=== PATIENT | male | born 1985 | race Asian ===

== ENCOUNTER 2018-12-07 00:27 | Emergency (ER) | payer OTHER ==
[2018-12-07 00:40] VITALS: BP 141/97
--- NOTE | 2018-12-07 00:42 | ED ---
Upper Extremity Pain - HPI Summary HPI Summary: This patient is a 33 year old M presenting to ED with a chief complaint of fishhook in his left thumb since 2229 on 12/06/18. The [place] of the fishhook is in. Patient has not had a tetanus vaccine. The patient rates the pain 0/10 in severity. Symptoms aggravated by nothing. Symptoms alleviated by nothing. Patient denies fever. PMHx HTN. FHx HTN. PSHx of back surgery per patient. Patient does not drink alcohol or use substances, but he does smoke tobacco. 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, Still Present Timing: Constant Severity Initially: Mild Severity Currently: None Pain Location: Other: - L thumb Aggravating Factor(s): Nothing Alleviating Factor(s): Nothing Associated Signs & Symptoms: Positive: Negative - Fever PMH/Surg Hx/FS Hx/Imm Hx Endocrine/Hematology History: Denies: Hx Diabetes Cardiovascular History: Reports: Hx Hypertension - Surgical History Surgery Procedure, Year, and Place: Back surgery Infectious Disease History: No Infectious Disease History: Denies: Traveled Outside the [place] in Last 30 Days - Family History Known Family History: Positive: Hypertension Negative: Diabetes - Social History Alcohol Use: None Hx Substance Use: No Hx Tobacco Use: Yes Smoking Status (MU): Current Some Day Smoker Review of Systems Negative: Fever Skin: Other - [place] in L thumb All Other Systems Reviewed And Are Negative: Yes Physical Exam - Summary Physical Exam Summary: Appearance: Well-appearing, Well-nourished, lying in bed comfortable Skin: fish hook embedded in pad of left thumb Eyes: sclera anicteric, no conjunctival pallor ENT: mucous membranes moist Neck: deferred Respiratory: No signs of respiratory distress Cardiovascular: Appears well perfused, pulses are nml Abdomen: deferred Musculoskeletal: Moving all 4 extremities without obvious discomfort Neurological: Awake and alert, mentation is normal, speech is fluent and appropriate Psychiatric: affect is normal, does not appear anxious or depressed Triage Information Reviewed: Yes Vital Signs On Initial Exam: Initial Vitals Temp Pulse Resp BP Pulse Ox 98.0 F 80 16 141/97 98 12/07/18 00:30 06/03/19 00:30 12/07/18 00:30 12/07/18 00:30 12/07/18 00:30 Vital Signs Reviewed: Yes Procedures - Procedure Summary Procedure Summary: Digital block of left thumb with 2% lidocaine with epi. After anesthesia was achieved, foreign body was extracted with help of needle oil transport driver. Diagnostics - Vital Signs Vital Signs Temp Pulse Resp BP Pulse Ox 12/07/18 00:30 98.0 F 80 16 141/97 98 - Laboratory Lab Statement: Any lab studies that have been ordered have been reviewed, and results considered in the medical decision making process. Course/Dx - Course Course Of Treatment: This patient is a 33 year old M presenting to ED with a chief complaint of fishhook in his left thumb since 2229 on 12/06/18. In the ED course, digital block of left thumb with 2% lidocaine with epi was performed. After anesthesia was achieved, foreign body was extracted with help of needle oil transport driver. Patient was given Boostrix. Patient will be discharged home with diagnosis of foreign body in left thumb. Patient understands and agrees with this plan. - Diagnoses Provider Diagnoses: Foreign body of left thumb Discharge - Sign-Out/Discharge Documenting (check all that apply): Patient Departure - Discharge Patient Received Moderate/Deep Sedation with Procedure: No - Discharge Plan Condition: Stable Disposition: HOME Patient Education Materials: Soft Tissue Foreign Body (ED) Referrals: [facility] [Outside] - If Needed - Billing Disposition and Condition Condition: STABLE Disposition: Home - Attestation Statements Document Initiated by Nichoibe: Yes Documenting Scribe: David Garcia Provider For Whom Latasha is Documenting (Include Credential): MD Nicho Jenningsibbarry Attestation: David Ferrer, scribed for Sidney Machado MD on 12/07/18 at 0420. Scribe Documentation Reviewed: Yes Provider Attestation: The documentation as recorded by the David bean accurately reflects the service I personally performed and the decisions made by me, Sidney Machado MD Status of Scribe Document: Viewed
[2018-12-07] MEDS ORDERED: Tetan/Diph/Pertus SYR(Tdap)* 0.5 ML SYR(BOOSTRIX) use SYR IM ONE (00:56)
== END 2018-12-07 01:07 | disposition home or self-care (01) ==
LOC: ED 00:27
DX: S60.352A Superficial foreign body of left thumb, initial encounter (principal); I10 Essential (primary) hypertension; X58.XXXA Exposure to other specified factors, initial encounter; Y92.9 Unspecified place or not applicable; Z72.0 Tobacco use
CPT/HCPCS: 10120; 90471; 90715; 99281